=== PATIENT | male | born 2000 | race African-American/Black ===

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

== ENCOUNTER 2020-12-06 13:49 | Emergency (ER) | payer MEDICAID ==
[~2020-12-06] VITALS: Ht 172.7 cm; Wt 64.0 kg
[2020-12-06 13:50] VITALS: BP 138/82
== END 2020-12-06 19:30 | disposition left against medical advice (07) ==
LOC: ER 13:49
DX: Z53.21 Procedure and treatment not carried out due to patient leaving prior to being seen by health care provider (principal)

== ENCOUNTER 2023-01-26 19:58 | Emergency (ER) | payer MEDICAID, OTHER ==
[~2023-01-26] VITALS: Ht 177.8 cm; Wt 64.0 kg
[2023-01-26 20:11] VITALS: BP 145/93; TEMP 98.8
[2023-01-26] MEDS ORDERED: PREDNISONE 20MG TABLET PO STA (20:12)
[2023-01-26] MEDS ORDERED: ALBUTEROL (0.083%) 2.5MG/3ML NEB HHN STA (20:12)
[2023-01-26] MEDS ORDERED: IPRATROPIUM BROMIDE (0.02%) 0.5MG/2.5ML NEB HHN STA (20:12)
[2023-01-26 20:40] VITALS: PULSE 94; RESP 18; O2SAT 98
[2023-01-26] MEDS ORDERED: KETOROLAC 60MG/2ML VIAL IM ONE (21:30)
[2023-01-26] MEDS ORDERED: ALBU6.7H15 INH (21:38)
[2023-01-26] MEDS ORDERED: TOPUD PO (21:38)
[2023-01-26] MEDS ORDERED: P50 PO (21:38)
== END 2023-01-26 21:56 | disposition home or self-care (01) ==
LOC: ER 19:58
DX: J45.901 Unspecified asthma with (acute) exacerbation (principal); R09.1 Pleurisy
CPT/HCPCS: 71045; 94640; 99284; J7512; Z7610 ×2

== ENCOUNTER 2023-01-30 13:42 | Emergency (ER) | payer OTHER ==
[~2023-01-30] VITALS: Ht 177.8 cm; Wt 59.0 kg
[~2023-01-30 13:42] MED LIST: ALBU6.7H15 INH; P50 PO; TOPUD PO
[2023-01-30 13:54] VITALS: TEMP 98.4; O2SAT 99
[2023-01-30] MEDS ORDERED: KETOROLAC 60MG/2ML VIAL IM ONE (17:00)
[2023-01-30 18:14] VITALS: BP 159/96; PULSE 79; RESP 16
[2023-01-30 18:45] LABS: BASOPHILS % 0.4 % (0.0-2.0); EOSINOPHILS % 2.3 % (0.0-5.0); HEMATOCRIT. 43.2 % (42.0-52.0); HEMOGLOBIN. 14.5 g/dL (14.0-18.0); LYMPHOCYTES % 35.5 % (20.0-50.0); MEAN CORPUSCULAR HGB CONC 33.5 g/dL (31.0-37.0); MEAN CORPUSCULAR VOLUME 98.4 fL (80.0-94.0); MONOCYTES % 9.1 % (2.0-8.0); NEUTROPHILS % 52.7 % (40.0-76.0); PLATELET 233 x1000/uL (130-400); RED BLOOD CELL COUNT 4.39 mill/uL (4.7-6.1); RED CELL DISTRIBUTION WIDTH 13.7 % (11.6-14.6); WHITE BLOOD COUNT 8.5 x1000/uL (4.5-11.0)
[2023-01-30 19:02] LABS: ALANINE AMINOTRANSFERASE 38 IU/L (10-49); ALBUMIN 4.6 g/dL (3.2-4.8); ASPARTATE AMINOTRANSFERASE 25 IU/L (<34); BILIRUBIN TOTAL 0.8 mg/dL (0.1-1.0); CALCIUM 10.1 mg/dL (8.7-10.4); CARBON DIOXIDE 27 mEq/L (21-32); CHLORIDE 105 mEq/L (98-107); GLUCOSE 90 mg/dL (70-105); PROTEIN TOTAL 7.3 g/dL (6.0-8.3); SODIUM 140 mEq/L (136-145); TROPONIN I HIGH SENSITIVITY 8 ng/L (3.0-53); UREA NITROGEN BLOOD 14 mg/dL (9-23)
[2023-01-30] MEDS ORDERED: IBUP-2028 MT (20:28)
[2023-01-30 21:24] LABS: TROPONIN I HIGH SENSITIVITY 8 ng/L (3.0-53)
== END 2023-01-30 22:45 | disposition home or self-care (01) ==
LOC: ER 14:29
DX: R07.9 Chest pain, unspecified (principal); R94.31 Abnormal electrocardiogram [ECG] [EKG]; J45.909 Unspecified asthma, uncomplicated
CPT/HCPCS: 99285; 71046; 80053; 85025; 85379; 84484; 36415; 93005; 96372; J1885